=== PATIENT | female | born 1930 | race Caucasian/White ===

== ENCOUNTER 2016-06-22 00:56 | Emergency (ER) | payer MEDICARE, OTHER | END 2016-06-22 09:18 | disposition home or self-care (01) | LOC: ER 00:56 | DX: I50.9 Heart failure, unspecified (principal); F41.9 Anxiety disorder, unspecified; I48.91 Unspecified atrial fibrillation; E11.9 Type 2 diabetes mellitus without complications; E78.5 Hyperlipidemia, unspecified; I25.2 Old myocardial infarction; Z79.82 Long term (current) use of aspirin; Z79.899 Other long term (current) drug therapy | CPT/HCPCS: 36415; 87502; 96374; J1940 ==